=== PATIENT | male | born 1965 | race Caucasian/White ===

== ENCOUNTER 2023-12-17 18:15 | Emergency (ER) | payer BC, SELFPAY ==
[2023-12-17 18:25] VITALS: BP 177/91; PULSE 72; TEMP 36.9; O2SAT 94; BMI 29.7
--- NOTE | 2023-12-17 18:35 | ED_ITS ---
Documented by User: Lexy Castillo 12/17/23 19:32 HPI HPI - Extremity Injury (Upper) General Chief Complaint: Wound/Laceration Stated Complaint: UPPER EXTREMITY INJURY-BLEEDING/SAW Time Seen by Provider: 12/17/23 18:35 Source: patient Mode of arrival: walk-in Limitations: no limitations History of Present Illness HPI narrative: 58 year old male presents to the ED for a wound to his left forearm. He accidentally cut himself with a utility knife tonight. Denies fever, chills, weakness, N/T. He has full ROM to his left wrist and hand. Distal sensation intact. Last tetanus shot was <5 years ago. Related Data Home Medications ?Medication ?Instructions ?Recorded ?Confirmed atorvastatin 10 mg tablet 10 mg PO DAILY 12/17/23 12/17/23 metoprolol succinate 50 mg 50 mg PO DAILY 12/17/23 12/17/23 tablet,extended release 24 hr Allergies Allergy/AdvReac Type Severity Reaction Status Date / Time No Known Drug Allergies Allergy Verified 12/17/23 18:29 Opioid HPI Opioid Management Most Recent Pain and Opioid Data: No Data to Display Review of Systems ROS Constitutional Denies: fever or chills Cardiovascular Denies: chest pain Respiratory Denies: shortness of breath Musculoskeletal Reports: extremity pain; Denies: neck pain, extremity swelling or joint pain Integumentary/Breast Reports: other (laceration); Denies: rash Neurological Denies: numbness in extremities or weakness in extremities Exam Constitutional Vital Signs, click to edit/add: Last Vital Signs Temp 98.5 F 12/17/23 18:25 Pulse 72 12/17/23 18:25 Resp 16 12/17/23 18:25 BP 177/91 H 12/17/23 18:25 Pulse Ox 94 L 12/17/23 18:25 O2 Del Method Room Air 12/17/23 18:25 Common normals: no apparent distress and oriented x3 General appearance: cooperative Eye Common normals: conjunctivae normal and no scleral icterus Neck & C-Spine Common normals: supple Chest Chest: symmetrical chest wall rise Respiratory Common normals: normal respiratory effort Effort & inspection: able to speak in complete sentences and symmetric chest movement Cardio Common normals: regular rate Peripheral pulses: radial pulses present and ulnar pulses present Extremity Other: 4 cm laceration to left anterior forearm. Minimal bleeding. Sutures indicated. Distal sensation intact. Full ROM to left wrist, hand, digits. Cap refill <3 sec. Wound appears superficial. Course Vital Signs Vital signs: Vital Signs Temperature 98.5 F 12/17/23 18:25 Pulse Rate 72 12/17/23 18:25 Respiratory Rate 16 12/17/23 18:25 Blood Pressure 177/91 H 12/17/23 18:25 Pulse Oximetry 94 L 12/17/23 18:25 Oxygen Delivery Method Room Air 12/17/23 18:25 Temperature 98.5 F 12/17/23 18:25 Pulse Rate 72 12/17/23 18:25 Respiratory Rate 16 12/17/23 18:25 Blood Pressure 177/91 H 12/17/23 18:25 Pulse Oximetry 94 L 12/17/23 18:25 Oxygen Delivery Method Room Air 12/17/23 18:25 MDM - Extremity Injury (Upper) MDM Narrative Medical decision making narrative: His wound was irrigated and sutures were placed. A dressing was applied. Follow up with pcp for recheck, further evaluation and treatment. Keep wound clean and dry. Suture removal in 10-14 days. Medical Records Attestation: I reviewed the patient's medical records. Discharge Plan Discharge Stand Alone Forms: Portal Instructions Chief Complaint: Wound/Laceration Clinical Impression: Forearm laceration Patient Disposition: Home, Self-Care Time of Disposition Decision: 19:12 Condition: Good Mode of Transportation: Private Vehicle Prescriptions / Home Meds: No Action metoprolol succinate 50 mg tablet extended release 24 hr 50 mg PO DAILY atorvastatin 10 mg tablet 10 mg PO DAILY Print Language: Togolese Instructions: Care For Your Stitches (ED), Laceration (ED) Additional Instructions: Keep the wound clean and dry. Watch for signs of infection: redness, purulent drainage, swelling, increased pain. The stitches will need to be removed in 10- 14 days. Referrals: Physician,Non-Staff, MD [Primary Care Provider] - 1 week Discharge Date/Time: 12/17/23 19:51 Procedures ED Laceration Laceration Laceration 1: Site: upper extremity (Left anterior forearm) Side (if applicable): left Size (cm): 4 Description: linear Anesthetic used: lidocaine 1% Anesthesia technique: local infiltration Pre-repair: irrigated extensively Skin layer closed with: other (Ethilon) Size (cm): 3-0 Number of sutures: 9 Technique: simple, interrupted Documented by User: Steve Gonzalez MD 12/17/23 20:27 HPI HPI - Extremity Injury (Upper) General Chief Complaint: Wound/Laceration Stated Complaint: UPPER EXTREMITY INJURY-BLEEDING/SAW Time Seen by Provider: 12/17/23 18:35 Related Data Home Medications ?Medication ?Instructions ?Recorded ?Confirmed atorvastatin 10 mg tablet 10 mg PO DAILY 12/17/23 12/17/23 metoprolol succinate 50 mg 50 mg PO DAILY 12/17/23 12/17/23 tablet,extended release 24 hr Allergies Allergy/AdvReac Type Severity Reaction Status Date / Time No Known Drug Allergies Allergy Verified 12/17/23 18:29 Opioid HPI Opioid Management Most Recent Pain and Opioid Data: No Data to Display Exam Constitutional Vital Signs, click to edit/add: Last Vital Signs Temp 98.5 F 12/17/23 18:25 Pulse 72 12/17/23 18:25 Resp 16 12/17/23 18:25 BP 177/91 H 12/17/23 18:25 Pulse Ox 94 L 12/17/23 18:25 O2 Del Method Room Air 12/17/23 18:25 Course Vital Signs Vital signs: Vital Signs Temperature 98.5 F 12/17/23 18:25 Pulse Rate 72 12/17/23 18:25 Respiratory Rate 16 12/17/23 18:25 Blood Pressure 177/91 H 12/17/23 18:25 Pulse Oximetry 94 L 12/17/23 18:25 Oxygen Delivery Method Room Air 12/17/23 18:25 Temperature 98.5 F 12/17/23 18:25 Pulse Rate 72 12/17/23 18:25 Respiratory Rate 16 12/17/23 18:25 Blood Pressure 177/91 H 12/17/23 18:25 Pulse Oximetry 94 L 12/17/23 18:25 Oxygen Delivery Method Room Air 12/17/23 18:25 MDM - Extremity Injury (Upper) MDM Narrative Medical decision making narrative: His wound was irrigated and sutures were placed. A dressing was applied. Follow up with pcp for recheck, further evaluation and treatment. Keep wound clean and dry. Suture removal in 10-14 days. I, Dr Gonzalez, have reviewed the above progress note and course of action in the ER; agree with the above. I have personally gone over history and physical, and discussed disposition and treatment plan with the patient. Discharge Plan Discharge Stand Alone Forms: Portal Instructions Chief Complaint: Wound/Laceration Clinical Impression: Forearm laceration Patient Disposition: Home, Self-Care Time of Disposition Decision: 19:12 Condition: Good Mode of Transportation: Private Vehicle Prescriptions / Home Meds: No Action metoprolol succinate 50 mg tablet extended release 24 hr 50 mg PO DAILY atorvastatin 10 mg tablet 10 mg PO DAILY Print Language: Togolese Instructions: Care For Your Stitches (ED), Laceration (ED) Additional Instructions: Keep the wound clean and dry. Watch for signs of infection: redness, purulent drainage, swelling, increased pain. The stitches will need to be removed in 10- 14 days. Referrals: Physician,Non-Staff, MD [Primary Care Provider] - 1 week Discharge Date/Time: 12/17/23 19:51
[2023-12-17] MEDS: LIDOCAINE HCL 1% PF 50 MG/5 ML VIAL 20 ML INJ (18:49)
== END 2023-12-17 19:51 | disposition home or self-care (01) ==
PROVIDERS: Emergency Provider Emergency Medicine
DX: S51.812A Laceration without foreign body of left forearm, initial encounter (principal); W26.0XXA Contact with knife, initial encounter
CPT/HCPCS: 12002; 99282